=== PATIENT | female | born 1935 | race Caucasian/White ===

== ENCOUNTER 2016-11-27 12:51 | Emergency (ER) | payer OTHER, MEDICARE ==
[2016-11-27 13:07] VITALS: TEMP 98.4
--- NOTE | 2016-11-27 13:38 | EDPHY ---
H & P Stated Complaint: LOPEZ x 3 days Time Seen by Provider: 11/27/16 13:37 HPI/ROS: CHIEF COMPLAINT: Headache. HISTORY OF PRESENT ILLNESS: The patient is an 81-year-old female who presents with 3 days of frontal headache. She was not sick prior to the onset of the headache. She had a stroke two years ago and was diagnosed with chronic pain afterwards that manifested as headaches, however her headaches eventually subsided. Her only stroke symptom was headache and a syncopal episode. Today's headache is similar to those previous headaches. She admits associated nausea and has not been hydrating properly over the past 3 days because of this. The headache is worsened with movement and alleviated by lying down. She denies numbness or paresthesias in an arm or leg, head trauma, fever, vomiting, double vision, urinary complaints, or neck pain. She takes one baby aspirin per day but is otherwise not on any type of anticoagulants. REVIEW OF SYSTEMS: Aside from elements discussed in the HPI, a comprehensive 10-point review of systems was reviewed and is negative. PAST MEDICAL HISTORY: Hyponatremia, hemorrhagic stroke, pacemaker, afib/ flutter, neck arthritis. SOCIAL HISTORY: No alcohol use. VITAL SIGNS Reviewed by me. GENERAL: Well-developed, well-nourished, alert and conversant. Describes headache as across her forehead.. HEENT: Atraumatic. Eyes: PERRL, EOMI, no nystagmus. No forehead tenderness to percussion. No icterus. No injection. Mouth: moist mucous membranes. No erythema or lesions. Neck: No meningitis. Nontender to palpation. No adenopathy. Negative Kernig's. Negative Brudzinski's. No meningismus. LUNGS: Clear to auscultation bilaterally, no wheezes, rhonchi or rales. CARDIAC: Regular rate and rhythm, no rubs, murmurs or gallops. ABDOMEN: Soft, nontender, nondistended, bowel sounds normal. BACK: No CVA tenderness. EXTREMITIES: No trauma. No edema. Range of motion is normal throughout. NEURO: Alert and oriented, cranial nerves II through XII are intact. Motor strength 5 over 5 in all major muscle groups. Sensation intact to light touch. Normal gait. SKIN: Warm and dry, no rash. PSYCHIATRIC: Normal mentation, no agitation. Portions of this note were transcribed by a medical record librarian. I personally performed a history, physical exam, medical decision making, and confirmed accuracy of information the transcribed note. Source: Patient Exam Limitations: No limitations - Personal History Current Tetanus/Diphtheria Vaccine: Unsure Current Tetanus Diphtheria and Acellular Pertussis (TDAP): Unsure Tetanus Vaccine Date: < 5 years - Medical/Surgical History Hx Asthma: No Hx Chronic Respiratory Disease: Yes Hx Diabetes: No Hx Cardiac Disease: Yes Hx Renal Disease: No Hx Cirrhosis: No Hx Alcoholism: No Hx HIV/AIDS: No Hx Splenectomy or Spleen Trauma: No Other PMH: hyponatremia, stroke february 2015. pacemaker. brochelectisis. afib/ flutter - Social History Smoking Status: Former smoker Constitutional: Initial Vital Signs Temperature (C) 36.9 C 11/27/16 13:01 Heart Rate 85 11/27/16 13:01 Respiratory Rate 17 11/27/16 13:01 Blood Pressure 133/86 H 11/27/16 13:01 O2 Sat (%) 3 L 11/27/16 13:01 O2 Delivery Mode Room Air Allergies/Adverse Reactions: Sulfa (Sulfonamide Antibiotics) Allergy (Severe, Verified 07/21/16 09:59) Other-Enter Comments Home Medications: Medication Instructions Recorded Levothyroxine [Synthroid] 88 mcg PO DAILY06 11/06/15 Tears/Hypromellose [Natural 1 - 2 drops EACHEYE TID PRN 11/06/15 Balance] Aspirin EC [Aspirin EC 81 mg (*)] 81 mg PO DAILY 11/07/15 Ondansetron Odt [Zofran Odt 4 mg 2 - 4 mg PO Q6 PRN #8 tab 11/27/16 (RX)] Medical Decision Making - Diagnostics Imaging: Study: CT of the head. Results: No hemorrhage, no acute findings The study was read by the radiologist, Dr. Barajas . I viewed the images myself on the PACS system. ED Course/Re-evaluation: An IV was established and labs ordered. 1L IV saline administered for hydration , 2mg IV Zofran for nausea. Head CT ordered. Patient's head CT demonstrates no new findings. No acute hemorrhage. Patient was reassured by the CT findings. Patient reports her headache is improved with her fluids and her nausea was improved with the small doses Zofran. She will be discharged with oral Zofran to use as needed for ongoing nausea and encouraged to drink plenty of fluid. Differential Diagnosis: After history was obtained, and the physical exam performed, a differential for headache was considered including, but not limited to, subarachnoid hemorrhage, migraine headache, tension headache and infectious causes such as meningitis, sinusitis, encephalitis. - Data Points Laboratory Results: Laboratory Results 11/27/16 13:25 11/27/16 13:25 11/27/16 13:25 WBC 6.79 10^3/uL (3.80-9.50) RBC 4.82 10^6/uL (4.18-5.33) Hgb 14.6 g/dL (12.6-16.3) Hct 42.4 % (38.0-47.0) MCV 88.0 fL (81.5-99.8) MCH 30.3 pg (27.9-34.1) MCHC 34.4 g/dL (32.4-36.7) RDW 15.0 % (11.5-15.2) Plt Count 160 10^3/uL (150-400) MPV 11.6 fL (8.7-11.7) Neut % (Auto) 60.6 % (39.3-74.2) Lymph % (Auto) 25.8 % (15.0-45.0) [place] % (Auto) 8.7 % (4.5-13.0) Eos % (Auto) 4.1 % (0.6-7.6) Baso % (Auto) 0.7 % (0.3-1.7) Nucleat RBC Rel Count 0.0 % (0.0-0.2) Absolute Neuts (auto) 4.11 10^3/uL (1.70-6.50) Absolute Lymphs (auto) 1.75 10^3/uL (1.00-3.00) Absolute Monos (auto) 0.59 10^3/uL (0.30-0.80) Absolute Eos (auto) 0.28 10^3/uL (0.03-0.40) Absolute Basos (auto) 0.05 10^3/uL (0.02-0.10) Absolute Nucleated RBC 0.00 10^3/uL (0-0.01) Immature Gran % 0.1 % (0.0-1.1) Immature Gran # 0.01 10^3/uL (0.00-0.10) Sodium 139 mEq/L (134-144) Potassium 4.8 mEq/L (3.5-5.2) Chloride 103 mEq/L (97-110) Carbon Dioxide 25 mEq/l (22-31) Anion Gap 11 mEq/L (8-16) BUN 39 H mg/dL (7-23) Creatinine 1.2 H mg/dL (0.6-1.0) Estimated GFR 43 Glucose 90 mg/dL (70-100) Calcium 9.7 mg/dL (8.5-10.4) Troponin I < 0.012 ng/mL (0-0.034) Medications Given: Discontinued Medications Sodium Chloride (Ns) 1,000 mls @ 500 mls/hr IV CONT LUAN Stop: 05/26/17 13:59 Last Admin: 11/27/16 13:50 Dose: 1,000 mls Ondansetron HCl (Zofran) 2 mg IVP EDNOW ONE Stop: 11/27/16 13:55 Last Admin: 11/27/16 14:10 Dose: 2 mg Ondansetron HCl (Zofran Odt 4 Mg Prepack#2) 1 btl TAKEHOME EDNOW ONE Stop: 11/27/16 15:58 Last Admin: 11/27/16 16:15 Dose: 1 btl Departure - Departure Disposition: Home, Routine, Self-Care Clinical Impression: Headache Qualifiers: Headache type: unspecified Headache chronicity pattern: acute headache Intractability: not intractable Qualifier Code: (R51) Headache Condition: Good Instructions: Acute Headache (ED) Additional Instructions: Please try to drink plenty of fluid. Continue to use Tylenol as needed for headache pain. Okay to take Zofran, 1/2 a tablet, every 6-8 hours as needed for ongoing nausea. Please follow up with the primary care physician as needed. Consider follow-up with a neurologist if your headaches are becoming more frequent, persistent, or you have other concerns. Referrals: Brian Renee MD [Primary Care Provider] - As per Instructions Prescriptions: Ondansetron Odt [Zofran Odt 4 mg (RX)] 2 - 4 mg PO Q6 PRN #8 tab PRN Reason: Nausea Report Scribed for: Kina Martinez Report Scribed by: Junior Barroso Date of Report: 11/27/16 Time of Report: 13:37
[2016-11-27] MEDS ORDERED: ONDANSETRON 4 MG/2 ML VIAL IVP ONE (13:54)
[2016-11-27] MEDS ORDERED: NS 1,000 ML IV SCH (14:00)
[2016-11-27 14:06] LABS: ANION GAP 11 mEq/L (8-16); CALCIUM 9.7 mg/dL (8.5-10.4); CARBON DIOXIDE 25 mEq/l (22-31); CHLORIDE 103 mEq/L (97-110); CREATININE 1.2 mg/dL (0.6-1.0); GLOMERULAR FILTRATION RATE 43; GLUCOSE 90 mg/dL (70-100); POTASSIUM 4.8 mEq/L (3.5-5.2); SODIUM 139 mEq/L (134-144)
[2016-11-27 14:07] LABS: % IMMATURE GRANULYOCYTES 0.1 % (0.0-1.1); ABSOLUTE IMMATURE GRANULOCYTES 0.01 10^3/uL (0.00-0.10); ADD DIFF? NO; ADD MORPH? NO; ADD SCAN? NO; ATYPICAL LYMPHOCYTE FLAG 0 (0-99); FRAGMENT RBC FLAG 0 (0-99); HEMATOCRIT 42.4 % (38.0-47.0); HEMOGLOBIN 14.6 g/dL (12.6-16.3); LEFT SHIFT FLG 0 (0-99); LIPEMIA HEMOLYSIS FLAG 90 (0-99); MEAN CELL HEMOGLOBIN 30.3 pg (27.9-34.1); MEAN CELL HEMOGLOBIN CONCENTR. 34.4 g/dL (32.4-36.7); MEAN PLATELET VOLUME 11.6 fL (8.7-11.7); PLATELET CLUMPS FLAG 0 (0-99); PLATELET COUNT 160 10^3/uL (150-400); RED BLOOD CELL COUNT 4.82 10^6/uL (4.18-5.33)
[2016-11-27 14:21] LABS: TROPONIN I < 0.012 ng/mL (0-0.034)
--- NOTE | 2016-11-27 15:52 | CT ---
CT Scan of the Head (Without Contrast) Clinical Indications: 81-year-old female presenting to the ED complaining of a frontal headache for 3 days and a prior remote history of a hemorrhagic stroke. Technique: Axial CT images were acquired from the foramen magnum through the skull vertex, without i ntravenous contrast. Soft tissue, subdural, and bone windows were reviewed on the computer workstati on. Images were reformatted at 5.00 and 1.25 mm increments, and are reformatted in sagittal and trever nal planes. DFOV is 25.0 cm. Dose reduction techniques were utilized. Comparison Study: Unenhanced CT scan of the brain, dated April 29, 2016. Findings: There is a stable area of focal encephalomalacia involving the posterior medial right tempo ral lobe. There are no new mass lesions identified, and there is no evidence of an acute or subacute intracranial hemorrhage, or an acute infarct. The ventricles and subarachnoid spaces are prominent, with cortical sulcal widening consistent with age-related cerebral cortical atrophy. The bone windows reveal no sign of a fracture. The visualized paranasal sinuses and mastoid air cells are free of fl uid. Trace mucosal thickening of the maxillary and the ethmoid sinuses is seen. The craniocervical ju nction, sella turcica, pineal gland, and orbits are unremarkable. There is some faint mural atheroscl erotic calcification of the cavernous carotid arteries. If there is continuing clinical concern regar ding the patient's symptoms, MR imaging could be considered, if otherwise not contraindicated. 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 Results were called to Dr. Kina Martinez. A test result has been communicated to a licensed care provider and documented in [employer], 3:49:27 PM , 11/27/2016, [employer] Message ID [id number].
[2016-11-27] MEDS ORDERED: ONDANSETRON 4MG PREPACK#2 BTL TAKEHOME ONE (15:57)
[2016-11-27 16:15] VITALS: BP 133/78; PULSE 80; RESP 14; O2SAT 94
== END 2016-11-27 16:14 | disposition home or self-care (01) ==
DX: R51 Headache (principal); Z79.82 Long term (current) use of aspirin; Z95.0 Presence of cardiac pacemaker; Z87.891 Personal history of nicotine dependence
CPT/HCPCS: 96374

== ENCOUNTER → 2017-05-09 | Outpatient (CLI) | payer OTHER, MEDICARE | LOC: BHFA 14:00 | PROVIDERS: ATTEND Internal Medicine Cardiovascular Disease | DX: I48.91 Unspecified atrial fibrillation (principal) ==

== ENCOUNTER → 2017-05-11 | Outpatient (CLI) | payer OTHER, MEDICARE | LOC: FIMAGING 10:40 | PROVIDERS: ATTEND Internal Medicine | DX: G93.89 Other specified disorders of brain (principal); Z86.79 Personal history of other diseases of the circulatory system ==

== ENCOUNTER → 2017-05-22 | Outpatient (CLI) | payer OTHER, MEDICARE ==
--- NOTE | 2017-05-26 18:18 | CPEEG ---
[f rep st] ELECTROENCEPHALOGRAM FOUR-HOUR VIDEO ELECTROENCEPHALOGRAM. DATE OF STUDY: 05/22/2017 DATE OF INTERPRETATION: 05/26/2017 INTERPRETATION: This 4-hour video EEG recording shows a mild degree of focal slowing over the right posterior temporal head region. These findings would be consistent with a mild focal disturbance o f cerebral function in these regions. There were no potentially epileptogenic abnormalities present during the awake or sleep recordings. The patient did not have any clinical events during the vide o EEG monitoring session. REPORT: This 4-hour video EEG contains 8 to 9 Hz alpha activity in posterior head regions. There w as no abnormal epileptiform activation at rest, during photic stimulation or hyperventilation. Ther e was a mild degree of focal slowing over the right posterior temporal head region (maximal electrod es T4 and T6), composed of intermittent low-amplitude polymorphic theta activity. The patient becam e drowsy and fell asleep during the study. There was no abnormal activation during drowsiness, exte nded sleep, or times of arousal. The patient did not have any clinical events during the video EEG monitoring session. /[id number]/MODL
== END ==
LOC: FCPNEURO 11:09
PROVIDERS: ATTEND Psychiatry & Neurology Neurology
DX: R41.0 Disorientation, unspecified (principal)

== ENCOUNTER → 2017-05-23 | Outpatient (CLI) | payer OTHER, MEDICARE | LOC: BHFA 14:45 | PROVIDERS: ATTEND Internal Medicine | DX: R41.0 Disorientation, unspecified (principal) ==

== ENCOUNTER → 2017-07-05 | Outpatient (CLI) | payer OTHER, MEDICARE | LOC: FIMAGING 08:52 | PROVIDERS: ATTEND Internal Medicine | DX: Z12.31 Encounter for screening mammogram for malignant neoplasm of breast (principal); Z80.3 Family history of malignant neoplasm of breast | CPT/HCPCS: G0202 ==

== ENCOUNTER → 2017-10-16 | Outpatient (CLI) | payer OTHER, MEDICARE | LOC: FIMAGING 15:51 | PROVIDERS: ATTEND Otolaryngology | DX: R22.1 Localized swelling, mass and lump, neck (principal) ==

== ENCOUNTER → 2017-12-28 | Outpatient (CLI) | payer OTHER, MEDICARE | LOC: FIMAGING 11:57 | PROVIDERS: ATTEND Internal Medicine | DX: M16.0 Bilateral primary osteoarthritis of hip (principal) ==

== ENCOUNTER 2018-04-02 21:20 | Observation (INO) | payer OTHER, MEDICARE ==
[2018-04-02] MEDS ORDERED: NS 1,000 ML IV ONE (21:23)
--- NOTE | 2018-04-02 21:27 | EDPHY ---
H & P Time Seen by Provider: 04/02/18 21:24 HPI/ROS: HPI CHIEF COMPLAINT: Diarrhea, syncope HISTORY OF PRESENT ILLNESS: Patient is a 82-year-old female, she has a history of sick sinus syndrome with pacemaker, thyroid disease, she presents emergency room with 3 days of diarrhea watery nonbloody. She did see her primary care doctor today for diarrhea. She has a rather large dinner this evening she then went to the bathroom and had a diarrheal bowel movement. She became lightheaded and had a syncopal episode landing on the ground. The patient denies any injury. Denies chest pain or shortness of breath. Denies vomiting, denies abdominal pain. Does endorse diarrhea. Global weakness. She arrives by ambulance. She states she feels fine now. Past Medical History: Sick sinus syndrome with pacemaker, thyroid disease Past Surgical History: Left chest pacemaker Social History: Denies drugs alcohol tobacco. Family History: Noncontributory ROS REVIEW OF SYSTEMS: A comprehensive 10 point review of systems is otherwise negative aside from elements mentioned in the history of present illness. Exam Constitutional elderly, frail, triage nursing summary reviewed, vital signs reviewed, awake/alert. Eyes normal conjunctivae and sclera, EOMI, PERRLA. HENT normal inspection, atraumatic, dry mucus membranes, no epistaxis, neck supple/ no meningismus, no raccoon eyes. Respiratory clear to auscultation bilaterally, normal breath sounds, no respiratory distress, no wheezing. Cardiovascular rate normal, regular rhythm, no murmur, no edema, distal pulses normal. Gastrointestinal soft, non-tender, no rebound, no guarding, normal bowel sounds, no distension, no pulsatile mass. Genitourinary no CVA tenderness. Musculoskeletal no midline vertebral tenderness, full range of motion, no calf swelling, no tenderness of extremities, no meningismus, good pulses, neurovascularly intact. Skin pink, warm, & dry, no rash, skin atraumatic. Neurologic awake, alert and oriented x 3, AAOx3, moves all 4 extremities equally, motor intact, sensory intact, CN II-XII intact, normal cerebellar, normal vision, normal speech. Psychiatric normal mood/affect. Heme/Lymph/Immune no lymphadenopathy. Differential Diagnosis: Includes but is not limited to in a particular order dehydration electrolyte disturbance, vasovagal syncope, orthostatic syncope, cardiac arrhythmia Medical Decision Making: Plan for this patient IV establishment with blood draw , gentle IV fluids, EKG, troponin, check electrolytes, check magnesium, IV fluids for rehydration. Re-evaluation: EKG interpretation by me on record in [employer] system. Impression time of EKG 2132, sinus rhythm rate of 66, PVCs present. LVH present. Q-waves noted V1 V2 V3. When I compare this EKG to her old EKG is very similar morphology specifically EKG dated 02/15/2016 Source: Patient, EMS - Personal History Tetanus Vaccine Date: < 5 years - Medical/Surgical History Hx Asthma: No Hx Chronic Respiratory Disease: Yes Hx Diabetes: No Hx Cardiac Disease: Yes Hx Renal Disease: No Hx Cirrhosis: No Hx Alcoholism: No Hx HIV/AIDS: No Hx Splenectomy or Spleen Trauma: No Other PMH: hyponatremia, stroke february 2015. pacemaker. brochelectisis. afib/ flutter - Social History Smoking Status: Former smoker Constitutional: Initial Vital Signs Temperature (C) 36.3 C 04/02/18 21:22 Heart Rate 77 04/02/18 21:22 Respiratory Rate 16 04/02/18 21:22 Blood Pressure 157/73 H 04/02/18 21:22 O2 Sat (%) 93 04/02/18 21:22 O2 Delivery Mode Room Air Allergies/Adverse Reactions: Sulfa (Sulfonamide Antibiotics) Allergy (Severe, Verified 04/02/18 21:25) Other-Enter Comments Home Medications: Medication Instructions Recorded Tears/Hypromellose [Natural 1 - 2 drops EACHEYE TID PRN 11/06/15 Balance] Aspirin EC [Aspirin EC 81 mg (*)] 81 mg PO DAILY 11/07/15 Fludrocortisone Acetate [Florinef] 0.1 mg PO DAILY 04/02/18 Levothyroxine [Synthroid 50 mcg 50 mcg PO DAILY06 04/03/18 (*)] Medical Decision Making - Data Points Laboratory Results: Laboratory Results 04/02/18 21:30 04/02/18 21:30 Medications Given: Discontinued Medications Aspirin Buffered (Aspirin Ec) 81 mg PO DAILY [facility] Stop: 09/30/18 08:59 Last Admin: 04/03/18 08:53 Dose: 81 mg Enoxaparin Sodium (Lovenox) 30 mg SC DAILY [facility] Stop: 09/30/18 08:59 Last Admin: 04/03/18 08:57 Dose: Not Given Fludrocortisone Acetate (Florinef) 0.1 mg PO DAILY LUAN Stop: 09/30/18 08:59 Last Admin: 04/03/18 08:53 Dose: 0.1 mg Sodium Chloride (Ns) 1,000 mls @ 0 mls/hr IV EDNOW ONE; Wide Open PRN Reason: Protocol Stop: 04/02/18 21:24 Last Admin: 04/02/18 21:38 Dose: 1,000 mls Potassium Chloride/Sodium Chloride (Ns W/ 20 Kcl/L) 1,000 mls @ 100 mls/hr IV CONT LUAN Stop: 09/29/18 23:44 Last Admin: 04/03/18 01:19 Dose: 1,000 mls Levothyroxine Sodium (Synthroid) 88 mcg PO DAILY06 [facility] Stop: 09/30/18 07:59 Last Admin: 04/03/18 08:55 Dose: 88 mcg Levothyroxine Sodium (Synthroid) 50 mcg PO DAILY06 LUAN Stop: 09/30/18 10:14 Last Admin: 04/03/18 11:28 Dose: Not Given Departure - Departure Disposition: [facility] Clinical Impression: Dehydration Syncope Qualifiers: Syncope type: unspecified Qualified Code(s): R55 - Syncope and collapse Diarrhea Qualifiers: Diarrhea type: unspecified type Qualified Code(s): R19.7 - Diarrhea, unspecified Condition: Fair
--- NOTE | 2018-04-02 21:35 | CPEKG ---
Heart Rate: 65 RR Interval: 923 P-R Interval: 200 QRSD Interval: 80 QT Interval: 392 QTC Interval: 408 P [place]: 99 QRS [place]: -76 T Wave [place]: 3 EKG Severity - ABNORMAL ECG - EKG Impression: UNKNOWN RHYTHM, IRREGULAR RATE 54-82 EKG Impression: PROBABLE LEFT ATRIAL ABNORMALITY EKG Impression: LEFT ANTERIOR FASCICULAR BLOCK EKG Impression: PROBABLE LEFT VENTRICULAR HYPERTROPHY EKG Impression: ANTERIOR Q WAVES, POSSIBLY DUE TO LVH EKG Impression: BORDERLINE T ABNORMALITIES, INFERIOR LEADS Electronically Signed By: Dawood Chandler 02-Apr-2018 23:44:44
[2018-04-02 21:45] LABS: PLATELET COUNT 120 10^3/uL (150-400)
[2018-04-02 21:55] LABS: INR 1.09 (0.83-1.16); PROTIME(PATIENT) 14.3 SEC (12.0-15.0)
[2018-04-02 21:59] LABS: CREATINE KINASE 50 IU/L (0-156)
[2018-04-02] MEDS ORDERED: ONDANSETRON DISINTEGRATING 4 MG TAB PO PRN (23:34)
[2018-04-02] MEDS ORDERED: ACETAMINOPHEN 325 MG TAB PO PRN (23:34)
[2018-04-02] MEDS ORDERED: ONDANSETRON 4 MG/2 ML VIAL IVP PRN (23:34)
[2018-04-02] MEDS ORDERED: NS W/ 20 KCl/L 1,000 ML IV SCH (23:45)
--- NOTE | 2018-04-03 03:36 | PDGENHP ---
History and Physical - Chief Complaint Syncope - History of Present Illness 82 yo F w/ hx of hypothyroidism, sick sinus syndrome s/p PPM, and prior episodes of syncope presents with syncope. Patient states she has had loose stools for the last couple of days. On the day of admission she rushed to the bathroom for a bowel movement when she suffered a syncopal episode. She recalls feeling lightheaded prior to the event but denies other prodrome such as chest pain or shortness of breath. She regained consciousness quickly without complication and did not suffer significant injuries. The patient denies symptoms currently. History Information - Allergies/Home Medication List Allergies/Adverse Reactions: Sulfa (Sulfonamide Antibiotics) Allergy (Severe, Verified 04/02/18 21:25) Other-Enter Comments Home Medications: Levothyroxine [Synthroid] 88 mcg PO DAILY06 11/06/15 [Last Taken 11/05/15] Tears/Hypromellose [Natural Balance] 1 - 2 drops EACHEYE TID PRN 11/06/15 [Last Taken Unknown] Aspirin EC [Aspirin EC 81 mg (*)] 81 mg PO DAILY 11/07/15 [Last Taken 11/07/15] Fludrocortisone Acetate [Florinef 0.1 MG (RX)] 0.1 mg PO DAILY 04/02/18 [Last Taken Unknown] I have personally reviewed and updated: family history, medical history - Past Medical History Additional medical history: Hypothyroid. Sick sinus syndrome - Surgical History Reports: pacemaker/AICD - Family History Positive for: stroke - Social History Smoking Status: Former smoker Review of Systems Review of Systems: ROS: 10pt was reviewed & negative except for what was stated in HPI & below Physical Exam Physical Exam: Temp Pulse Resp BP Pulse Ox 36.5 C 61 16 151/75 H 91 L 04/03/18 00:46 04/03/18 00:46 04/03/18 00:46 04/03/18 00:46 04/03/18 00:46 Constitutional: no apparent distress, not in pain Eyes: PERRL, EOMI Ears, Nose, Mouth, Throat: moist mucous membranes, no oral mucosal ulcers Cardiovascular: regular rate and rhythym, systolic murmur, other (Pacemaker pocket intact) Respiratory: no respiratory distress, clear to auscultation Gastrointestinal: normoactive bowel sounds, soft, non-tender abdomen Skin: warm, normal color Musculoskeletal: full muscle strength, no muscle tenderness Neurologic: AAOx3, CN II-XII Intact Psychiatric: interacting appropriately, not anxious Lab Data & Imaging Review 04/02/18 21:30 04/02/18 21:30 WBC 6.85 10^3/uL (3.80-9.50) 04/02/18 21:30 RBC 4.16 10^6/uL (4.18-5.33) L 04/02/18 21:30 Hgb 12.5 g/dL (12.6-16.3) L 04/02/18 21:30 Hct 37.3 % (38.0-47.0) L 04/02/18 21:30 MCV 89.7 fL (81.5-99.8) 04/02/18 21:30 MCH 30.0 pg (27.9-34.1) 04/02/18 21:30 MCHC 33.5 g/dL (32.4-36.7) 04/02/18 21:30 RDW 14.3 % (11.5-15.2) 04/02/18 21:30 Plt Count 120 10^3/uL (150-400) L 04/02/18 21:30 MPV 10.1 fL (8.7-11.7) 04/02/18 21:30 Neut % (Auto) 75.4 % (39.3-74.2) H 04/02/18 21:30 Lymph % (Auto) 13.6 % (15.0-45.0) L 04/02/18 21:30 [place] % (Auto) 7.7 % (4.5-13.0) 04/02/18 21:30 Eos % (Auto) 2.9 % (0.6-7.6) 04/02/18 21:30 Baso % (Auto) 0.3 % (0.3-1.7) 04/02/18 21:30 Nucleat RBC Rel Count 0.0 % (0.0-0.2) 04/02/18 21:30 Absolute Neuts (auto) 5.16 10^3/uL (1.70-6.50) 04/02/18 21:30 Absolute Lymphs (auto) 0.93 10^3/uL (1.00-3.00) L 04/02/18 21:30 Absolute Monos (auto) 0.53 10^3/uL (0.30-0.80) 04/02/18 21:30 Absolute Eos (auto) 0.20 10^3/uL (0.03-0.40) 04/02/18 21:30 Absolute Basos (auto) 0.02 10^3/uL (0.02-0.10) 04/02/18 21:30 Absolute Nucleated RBC 0.00 10^3/uL (0-0.01) 04/02/18 21:30 Immature Gran % 0.1 % (0.0-1.1) 04/02/18 21:30 Immature Gran # 0.01 10^3/uL (0.00-0.10) 04/02/18 21:30 PT 14.3 SEC (12.0-15.0) 04/02/18 21:30 INR 1.09 (0.83-1.16) 04/02/18 21:30 APTT 33.8 SEC (23.0-38.0) 04/02/18 21:30 Sodium 139 mEq/L (135-145) 04/02/18 21:30 Potassium 3.7 mEq/L (3.5-5.2) 04/02/18 21:30 Chloride 105 mEq/L (97-110) 04/02/18 21:30 Carbon Dioxide 25 mEq/l (22-31) 04/02/18 21:30 Anion Gap 9 mEq/L (8-16) 04/02/18 21:30 BUN 33 mg/dL (7-23) H 04/02/18 21:30 Creatinine 1.3 mg/dL (0.6-1.0) H 04/02/18 21:30 Estimated GFR 39 04/02/18 21:30 Glucose 117 mg/dL (70-100) H 04/02/18 21:30 Calcium 8.4 mg/dL (8.5-10.4) L 04/02/18 21:30 Magnesium 2.0 mg/dL (1.6-2.3) 04/02/18 21:30 Total Bilirubin 0.6 mg/dL (0.1-1.4) 04/02/18 21:30 Conjugated Bilirubin 0.3 mg/dL (0.0-0.5) 04/02/18 21:30 Unconjugated Bilirubin 0.3 mg/dL (0.0-1.1) 04/02/18 21:30 AST 22 IU/L (14-46) 04/02/18 21:30 ALT 32 IU/L (9-52) 04/02/18 21:30 Alkaline Phosphatase 50 IU/L (38-126) 04/02/18 21:30 Creatine Kinase 50 IU/L (0-156) 04/02/18 21:30 CK-MB (CK-2) Fraction 1.67 ng/mL (0.00-3.19) 04/02/18 21:30 Troponin I < 0.012 ng/mL (0.000-0.034) 04/02/18 21:30 Total Protein 6.0 g/dL (6.3-8.2) L 04/02/18 21:30 Albumin 3.4 g/dL (3.5-5.0) L 04/02/18 21:30 Lipase 117 IU/L (23-300) 04/02/18 21:30 Urine Color YELLOW 04/02/18 22:30 Urine Appearance MODERATELY TURBID 04/02/18 22:30 Urine pH 6.0 (5.0-7.5) 04/02/18 22:30 Ur Specific [place] 1.012 (1.002-1.030) 04/02/18 22:30 Urine Protein NEGATIVE (NEGATIVE) 04/02/18 22:30 Urine Ketones NEGATIVE (NEGATIVE) 04/02/18 22:30 Urine Blood 1+ (NEGATIVE) H 04/02/18 22:30 Urine Nitrate NEGATIVE (NEGATIVE) 04/02/18 22:30 Urine Bilirubin NEGATIVE (NEGATIVE) 04/02/18 22:30 Urine Urobilinogen NEGATIVE EU (0.2-1.0) 04/02/18 22:30 Ur Leukocyte Esterase 3+ (NEGATIVE) H 04/02/18 22:30 Urine RBC 5-10 /hpf (0-3) H 04/02/18 22:30 Urine WBC 10-15 /hpf (0-3) H 04/02/18 22:30 Ur Epithelial Cells TRACE /lpf (NONE-1+) 04/02/18 22:30 Urine Bacteria 4+ /hpf (NONE SEEN) H 04/02/18 22:30 Urine Mucus TRACE /lpf (NONE-1+) 04/02/18 22:30 Urine Glucose NEGATIVE (NEGATIVE) 04/02/18 22:30 Imaging Review: Imaging Impressions Chest X-Ray 04/02/18 21:23 Impression: No acute thoracic abnormality. Stable cardiac device and bibasilar scarring. Visualized and Interpreted EKG results: Yes EKG Interpretation: Positive for: other (Sinus arrhythmia, LAFB, intermittent pacing) Assessment & Plan Assessment: 82 yo F w/ hx of hypothyroidism, sick sinus syndrome s/p PPM and prior episodes of syncope presents with syncope. Plan: 1. Syncope - Single syncopal episode in the setting of diarrhea. I suspect this is a combination of vasovagal syncope with contribution from orthostasis noting ongoing diarrhea. She does have history of sick sinus syndrome but she has a pacemaker in place and unlikely to be contributing. I do see Florentino on her medication list but patient does not recall what this is for. It is possible she has postural hypotension, which may be contributing. - Admit for observation - Monitor for telemetry, would interrogate pacemaker only if telemetry concerning - IVF, recheck orthostatic VS in the morning 2. Diarrhea - Overall appears mild with only a few episodes daily. She denies recent antibiotics. - Check GI PCR 3. Hx sick sinus syndrome - s/p PPM 4. Hypothyroidism - Continue LTX 5. CKD, Stage III - Appears to be near creatinine baseline - Monitor BMP - Avoid nephrotoxic agents, renally dose medications Diet - Regular Code - Full Ppx - LMWH Dispo - Admit under observation status
[2018-04-03 05:39] LABS: PLATELET COUNT 123 10^3/uL (150-400)
[2018-04-03] MEDS ORDERED: NON-FORMULARY NEW DRUG (Tears/Hypromellose [Natural Balance] 0 DROPS) EACHEYE PRN (07:49)
[2018-04-03] MEDS ORDERED: TEARS/DEXTRAN 70/HYPROMELLOSE 15 ML OPHT.BTL EACHEYE PRN (07:53)
[2018-04-03] MEDS ORDERED: LEVOTHYROXINE 88 MCG TAB PO SCH (08:00)
[2018-04-03 08:30] VITALS: BP 144/76
[2018-04-03] MEDS ORDERED: ASPIRIN EC 81 MG TAB PO SCH (09:00)
[2018-04-03] MEDS ORDERED: ENOXAPARIN 30 MG/0.3 ML SYR SC SCH (09:00)
[2018-04-03] MEDS ORDERED: FLUDROCORTISONE ACETATE 0.1 MG TAB PO SCH (09:00)
--- NOTE | 2018-04-03 09:43 | ASMTCASEMG ---
Living Arrangements What is your living Answers: With Spouse arrangement? Who do you live with? Type Of Residence What kind of residence do Answers: House you live in? Discharge Plan Comments Coordination Status Comments Notes: Pt is a 82 y/o female admitted for dehydration and diarrhea. Pt will most likely will d/c independent when medically stable. No therapies ordered at this time. CM available for changes. Plan: Independent Date Signed: 04/03/2018 09:43 AM Electronically Signed By:MG Cain
[2018-04-03] MEDS ORDERED: LEVOTHYROXINE 50 MCG TAB PO SCH (10:15)
--- NOTE | 2018-04-03 10:15 | HOSPPROG ---
Hospitalist Progress Note Assessment/Plan: Judy Montes is an 82 yo F w/ hx of hypothyroidism, sick sinus syndrome s/p PPM and prior episodes of syncope presents with syncope. *syncope -most likely secondary to vasovagal -she had an episode of diarrhea -orthostatics are stable -no further symptoms -she is on Florinef (reviewed w the patient and her blood pressure has been elevated, should f/u with their PCP in regards to this) *Diarrhea -none further *hx of SSS s/p pacer -reviewed tele, she has been in sinus -per patient and this was recently interrogated, sees Dr Owen *Hypothyroidism -home med resumed *CKD, stage III *Plan: dc today if eating and drinking and ambulating Subjective: Judy says she feels fine, has no complaints. Objective: Vital Signs Temp Pulse Resp BP Pulse Ox 36.6 C 64 24 H 144/76 H 93 04/03/18 08:00 04/03/18 08:00 04/03/18 08:00 04/03/18 08:00 04/03/18 08:00 Laboratory Results 04/03/18 04:50 04/03/18 04:50 PT 14.3 SEC (12.0-15.0) 04/02/18 21:30 INR 1.09 (0.83-1.16) 04/02/18 21:30 - Physical Exam Constitutional: no apparent distress, appears nourished, not in pain Eyes: PERRL Ears, Nose, Mouth, Throat: hearing normal Cardiovascular: regular rate and rhythym, no murmur, rub, or gallop Respiratory: no respiratory distress Skin: warm Neurologic: AAOx3 Psychiatric: interacting appropriately ICD10 Worksheet Patient Problems: Problems Problem Status Onset Dehydration Acute Diarrhea Acute Syncope Acute Bradycardia Acute Bronchiectasis Acute Headache Acute Intracranial hemorrhage Acute Pericardial effusion with cardiac tamponade Acute Pericardial tumor Acute Thrombocytopenia Acute
--- NOTE | 2018-04-03 11:20 | GDS ---
[f rep st] DISCHARGE SUMMARY DISCHARGE DIAGNOSES: 1. Syncopal event, likely vasovagal. 2. History of sick sinus syndrome status post pacer. 3. Diarrhea. 4. Hypothyroidism. 5. Chronic kidney disease, stage 3. HISTORY OF PRESENT ILLNESS: Briefly, the patient is an 82-year-old female who has a history of hypothyroidism, sick sinus syndrome status post pacemaker placement, who presented to the emergency room after having a syncopal event. The patient was going to the bathroom because she was having an episode of diarrhea and at that time passed out. She was admitted and monitored overnight. HOSPITAL COURSE: 1. Syncope. I suspect this is mainly secondary to vasovagal. Orthostatics were checked which are stable. She is on Florinef. Reviewed with the patient and her to get a blood pressure cuff and monitor this daily. In addition, she has recently gotten her pacemaker interrogated. 2. Diarrhea. None further. 3. History of sick sinus syndrome status post pacemaker. Reviewed the radiation monitor. She has been in a sinus rhythm. 4. Hypothyroidism on Synthroid. 5. Chronic kidney disease, stage 3, stable. DISCHARGE CONDITION: Stable. Blood pressure is 144/76, respiratory rate is 24 , pulse is 64, temperature 36.6 Celsius, O2 sats on room air are 93%. MEDICATIONS AT DISCHARGE: Please see the EMR. DISCHARGE INSTRUCTIONS: 1. Follow up Dr. Renee. 2. To check her blood pressure daily and keep a record of this to get to Dr. Renee. 3. If she develops any further syncope, chest pain, or shortness of breath, return to the ER. 4. Patient has some hematuria and pyuria without symptoms. Message left at Dr. Renee office for follow up. /[id number]/MODL MTDD
== END 2018-04-03 11:27 | disposition home or self-care (01) ==
LOC: EDUNIT# → F3E 04-03 00:38
PROVIDERS: ADMIT Student in an Organized Health Care Education/Training Program; ATTEND Internal Medicine
DX: R55 Syncope and collapse (principal); E86.0 Dehydration; R19.7 Diarrhea, unspecified; I49.5 Sick sinus syndrome; I44.4 Left anterior fascicular block; E03.9 Hypothyroidism, unspecified; N18.3 Chronic kidney disease, stage 3 (moderate); I48.91 Unspecified atrial fibrillation; Z86.73 Personal history of transient ischemic attack (TIA), and cerebral infarction without residual deficits; Z87.891 Personal history of nicotine dependence; Z95.0 Presence of cardiac pacemaker; Z88.2 Allergy status to sulfonamides
CPT/HCPCS: 71045; 93005; G0378; J1650

== ENCOUNTER 2018-08-16 10:23 | Emergency (ER) | payer OTHER, MEDICARE ==
[2018-08-16] MEDS ORDERED: NS 500 ML IV ONE ×2 (10:38→14:00)
--- NOTE | 2018-08-16 10:50 | EDPHY ---
H & P Time Seen by Provider: 08/16/18 10:37 HPI/ROS: HPI Fainted. 83-year-old female by private vehicle with her . The 2 of them were in the car. They are going to breakfast. Her was driving. When they arrived at the restaurant and the patient was about to get out of a car she told her that she was going to faint. She reports that she became lightheaded very suddenly. He reports that she then lost consciousness briefly. She did not fall to the ground. He was able to get her out of the passenger seat and lay her in the back seat of his car. She denies any associated sudden-onset headache, no palpitations, no chest pain, no shortness of breath. She denies any loss of sensation or weakness in her extremities. No changes in vision. She denies any current complaints. She does have a pacemaker that was placed 4 years ago for sick sinus syndrome. She takes a baby aspirin daily. No anticoagulation or other antiplatelet agents. ROS: Constitutional: No fever, no chills. As above. Eyes: No discharge. No changes in vision. ENT: No sore throat. No nasal congestion or rhinorrhea. Respiratory: No cough. No shortness of breath. Cardiac: No chest pain, no palpitations. Gastrointestinal: No abdominal pain, no vomiting, no diarrhea. Genitourinary: No hematuria. No dysuria or increased frequency with urination. Musculoskeletal: No back pain. No neck pain. No myalgias or arthralgias. Skin: No rashes. Neurological: No headache. No focal weakness or altered sensation. Past medical history: Hyponatremia, sick sinus syndrome, pacemaker, she takes a baby aspirin daily. Bronchiectasis. She and her tell me that the pacemaker insertion was complicated by a puncture to her ventricle. Her manufacturing team leader is Dr. Isaias Owen. Social history: Nonsmoker. Here with her . No alcohol. Physical Exam: General Appearance: Alert, no distress. This patient is responding to questions appropriately and in full sentences. This patient appears well- hydrated and well-nourished. Eyes: Pupils equal and round no pallor or injection. No lid edema, erythema or injection. ENT, Mouth: Mucous membranes are moist. The pharyngeal tissues are unremarkable. No edema or swelling. No asymmetry suggestive of abscess. No erythema or exudates. No tongue lacerations or abrasions. Respiratory: There are no retractions, lungs are clear to auscultation with good air movement bilaterally. Cardiovascular: Regular rate and rhythm. No murmur appreciated. Gastrointestinal: Abdomen is soft and nontender, no masses, bowel sounds normal. No focal tenderness at McBurney's point. No Wallis sign. Neurological: Motor sensory function is grossly intact. Cranial nerves are normal. Cerebellar function is normal. Skin: Warm and dry, no rashes. Musculoskeletal: Neck is supple and nontender. Extremities are symmetrical. All joints range without pain or impingement. Psychiatric: No agitation. No depression. Database: EKG: EKG time is 10:38 a.m.: EKG shows probable third-degree AV block with ventricular paced complexes, ventricular rate average of 68. Interpreted by me. Imaging: Procedures: Emergency department course: Triage vital signs reviewed and are within normal limits. IV was placed. She was started on IV normal saline with 500 cc to be given over the next hour. She was placed on a clinical research monitor. EKG obtained and reviewed by myself. Patient is currently asymptomatic. Her pacemaker is a [employer] device. They will be contacted for interrogation. 11:23 a.m., patient re-evaluated. Resting comfortably at this time. No change in neurologic status. Vital signs reviewed. Results of emergency department workup discussed with the patient and her family. I discussed plan for admission to the hospitalist service. They endorse. All of their questions were answered. Hospitalist paged. 11:30 a.m., spoke with on-call hospitalist. Case discussed in detail. Patient admitted to the hospitalist service in stable condition. Interrogation of [employer] pacemaker pending. Patient admitted to the hospitalist service, telemetry observation in stable condition. Differential Diagnosis: The differential diagnosis on this patient includes but is not limited to pacemaker malfunction, dehydration, anemia. Subarachnoid hemorrhage, acute TX, pulmonary embolism, CVA unlikely. This represents a partial list of diagnoses considered. These considerations are based on history, physical exam, past history, reassessment and diagnostic testing. Smoking Status: Former smoker Constitutional: Initial Vital Signs Temperature (C) 36.5 C 08/16/18 10:26 Heart Rate 62 08/16/18 10:26 Respiratory Rate 16 08/16/18 10:26 Blood Pressure 112/67 08/16/18 10:26 O2 Sat (%) 92 08/16/18 10:26 O2 Delivery Mode Room Air O2 (L/minute) 2 Allergies/Adverse Reactions: Sulfa (Sulfonamide Antibiotics) Allergy (Severe, Verified 08/16/18 10:28) Other-Enter Comments Home Medications: Medication Instructions Recorded Tears/Hypromellose [Natural 1 - 2 drops EACHEYE TID PRN 11/06/15 Balance] Aspirin EC [Aspirin EC 81 mg (*)] 81 mg PO DAILY 11/07/15 Fludrocortisone Acetate [Florinef] 0.1 mg PO DAILY 04/02/18 Levothyroxine [Synthroid 50 mcg 50 mcg PO DAILY06 04/03/18 (*)] Medical Decision Making - Data Points Laboratory Results: Laboratory Results 08/16/18 10:44 08/16/18 10:44 Medications Given: Discontinued Medications Sodium Chloride (Ns) 500 mls @ 1,000 mls/hr IV EDNOW ONE PRN Reason: Protocol Stop: 08/16/18 11:07 Last Admin: 08/16/18 10:48 Dose: 500 mls Sodium Chloride (Ns) 500 mls @ 0 mls/hr IV ONCE ONE PRN Reason: Wide Open Stop: 08/16/18 14:01 Last Admin: 08/16/18 14:03 Dose: 500 mls Point of Care Test Results: Chemistry 08/16/18 08/16/18 14:42 10:44 POC Troponin I 0.01 ng/mL ng/mL 0.00 ng/mL ng/mL (0.00-0.08) (0.00-0.08) Departure - Departure Disposition: [facility] Inpatient Acute Clinical Impression: Syncope Condition: Fair Instructions: Syncope (ED) Additional Instructions: Drink plenty of fluids. Referrals: Brian Renee MD [Primary Care Provider] - As per Instructions
[2018-08-16 10:56] LABS: PLATELET COUNT 131 10^3/uL (150-400)
[2018-08-16] MEDS ORDERED: ONDANSETRON DISINTEGRATING 4 MG TAB PO PRN (11:37)
[2018-08-16] MEDS ORDERED: ACETAMINOPHEN 325 MG TAB PO PRN (11:37)
[2018-08-16] MEDS ORDERED: ONDANSETRON 4 MG/2 ML VIAL IVP PRN (11:37)
--- NOTE | 2018-08-16 13:47 | CPEKG ---
Test Reason : OPEN Blood Pressure : / mmHG Vent. Rate : 068 BPM Atrial Rate : 060 BPM P-R Int : 186 ms QRS Dur : 137 ms QT Int : 472 ms P-R-T Axes : 096 -87 076 degrees QTc Int : 503 ms Sinus rhythm Atrial premature complexes IVCD, consider atypical RBBB Inferior infarct, acute Anterolateral infarct, recent Confirmed by Cassi Valentine ([id number]) on 08/16/2018 1:47:43 PM Referred By: Confirmed By:Cassi Valentine
--- NOTE | 2018-08-16 14:43 | GHP ---
DATE OF ADMISSION: 08/16/2018 CHIEF COMPLAINT: Syncope. HISTORY OF PRESENT ILLNESS: An 83-year-old female with history of sick sinus syndrome with pacemaker , hypothyroidism, CKD 3, prior syncope, was brought in by family after syncopal episode. She was in her usual state of health this morning, went out to breakfast with her . While in the car, shravan resendiz felt as though she was going to faint. He thinks she lost consciousness for a few seconds. She de nied prodromal chest pain, shortness of breath, or palpitations. No focal weakness, or slurred speec h. says she had a busy day yesterday, went shopping, cooked, and felt very tired last night. De nies any infectious symptoms including cough, dysuria, diarrhea. Has been eating and drinking normal ly. In the ER, says she feels well. Her [employer] pacemaker was interrogated in the emergency room without any abnormal events. REVIEW OF SYSTEMS: I completed a 10-point review of systems, negative except as noted in HPI. PAST MEDICAL HISTORY: 1. Sick sinus syndrome with pacemaker. 2. Prior syncope. 3. Bronchiectasis. 4. CVA. 5. History of pericardial tamponade and revision of pacer lead in 2013. PAST SURGICAL HISTORY: 1. Cholecystectomy. 2. Hysterectomy. SOCIAL HISTORY: Lives in [place]. No alcohol, tobacco or illicits. FAMILY HISTORY: Noncontributory. HOME MEDICATIONS: 1. Eyedrops. 2. Synthroid 50 mcg daily. 3. Florinef 0.1 mg daily. 4. Aspirin 81. ALLERGIES: Sulfa. PHYSICAL EXAMINATION: VITAL SIGNS: Temperature is afebrile. Blood pressure is 168/80, heart rate i s in the 70s, respirations 22, 98% on room air. GENERAL: She is thin, elderly, no acute distress. HEENT: PERRLA. Mildly dry mucous membranes. CV: Regular rate and rhythm. No lower extremity jerry a. LUNGS: Clear. No crackles or wheezing. ABDOMEN: Mild epigastric tenderness. : No Velazquez. No suprapubic tenderness. MUSCULOSKELETAL: 5/5 upper and lower extremity strength. NEURO: 2 throu gh 12 intact. PSYCH: Alert and oriented x3. LABS: WBC 7, hemoglobin 13, hematocrit 40, platelets 131. UA is negative. Sodium 138, potassium 4. 8, chloride 104, carbon dioxide 24, BUN 38, creatinine is 1.3. Baseline is 1 to 1.2. Calcium is 9.3 . Troponin 0.00. EKG personally reviewed by me showing a VV paced. No ST elevation. ASSESSMENT AND PLAN: 1. Syncope: Differential: ACS, PE, dehydration. Initial troponin, and EKG negative. Stable on ro om air, and not tachycardiac. Low suspicion for pulmonary embolism. Her pacemaker was interrogated without acute events. Repeat troponin here. Patient really would like to go home. I think this is reasonable given negative findings thus far. 2. Hypothyroidism: Synthroid. 3. Sick sinus syndrome: Pacemaker in place. 4. Diet: Will be regular. 5. Disposition: Patient has been admitted to observation. Depending on next troponin, may discharg e later this afternoon. /[id number]/MODL
--- NOTE | 2018-08-16 16:14 | GDS ---
DISCHARGE DIAGNOSES: 1. Syncope. 2. History of sick sinus syndrome with pacemaker. 3. Prior stroke. 4. Bronchiectasis. HPI: Please see full H and P dictated today. Briefly, the patient was admitted for a brief syncopal episode while getting out of the car. She den ied any prodromal symptoms. EKG and 2 troponins were negative here. Her pacemaker was interrogated without any acute events. Suspect a component of dehydration with mild bump in creatinine. After IV fluids, the patient is feeling much improved and would like to go home. I did offer telemetry to en sure no arrhythmia or issues overnight. She declined. DISPOSITION: Patient is stable for discharge home. NEW MEDICATIONS: None. DISCHARGE INSTRUCTIONS: Drink plenty of fluids. FOLLOWUP: With your primary cardiology. Time spent on discharge greater than 30 minutes bedside with the patient, discussing case with Dr. Boles, as well as Dr. Koroma with Cardiology. /[id number]/MODL
[2018-08-16 16:29] VITALS: BP 179/89
[2018-08-17] MEDS ORDERED: ENOXAPARIN 40 MG/0.4 ML SYR SC SCH (09:00)
== END 2018-08-16 16:29 | disposition still patient (30) ==
LOC: UNDOADMOB 11:26
DX: R55 Syncope and collapse (principal); E86.0 Dehydration; J47.9 Bronchiectasis, uncomplicated; Z95.0 Presence of cardiac pacemaker; I49.5 Sick sinus syndrome; E03.9 Hypothyroidism, unspecified; Z86.73 Personal history of transient ischemic attack (TIA), and cerebral infarction without residual deficits
CPT/HCPCS: 84484-PO; J1650

== ENCOUNTER 2018-12-24 09:59 | Emergency (ER) | payer OTHER, MEDICARE ==
[2018-12-24 11:11] LABS: PLATELET COUNT 131 10^3/uL (150-400)
[2018-12-24] MEDS ORDERED: NS 1,000 ML IV ONE (11:56)
--- NOTE | 2018-12-24 11:56 | EDPHY ---
H & P Time Seen by Provider: 12/24/18 11:36 HPI/ROS: Chief complaint. Syncope HPI. 83-year-old female presents emergency department after syncopal episode earlier today. She was sitting at the kitchen table. She had no sense of lightheadedness or chest discomfort. She awoke on the floor. Her was out of the house and so it is unknown the exact length of loss of consciousness but maybe 25 min. She has a large bump to the left forehead. Yesterday she had nausea with decreased oral intake, headache and felt slightly faint. She had 2 1 sec twinges of left chest pain yesterday. Denies shortness of breath currently. She has chronic cough. She has had previous syncope ROS 10 systems were reviewed and negative with the exception of the elements mentioned in the history of present illness Past Medical/Surgical History: Bronchiectasis, hyponatremia, intracranial hemorrhage, pacemaker, atrial fib/ flutter Social History: , nonsmoker, no alcohol Smoking Status: Former smoker Physical Exam: General Appearance: Alert pleasant well-developed female mild distress. Vital signs are stable Eyes: Pupils equal and round no pallor or injection. ENT, no hemotympanum or Madsen sign. No oral pharyngeal or dental trauma. Large hematoma left forehead. Respiratory: There are no retractions, lungs are clear to auscultation. Cardiovascular: Regular rate and rhythm. Gastrointestinal: Abdomen is soft and nontender, no masses, bowel sounds normal. Neurological: Awake and alert, sensory and motor exams grossly normal. Skin: Warm and dry, no rashes. Musculoskeletal: Neck is supple nontender. Extremities symmetrical, full range of motion. Psychiatric: Patient is oriented X 3, there is no agitation. Constitutional: Initial Vital Signs Temperature (C) 36.3 C 12/24/18 10:07 Heart Rate 63 12/24/18 10:07 Respiratory Rate 18 12/24/18 10:07 Blood Pressure 137/73 H 12/24/18 10:07 O2 Sat (%) 92 12/24/18 10:07 O2 Delivery Mode Room Air Allergies/Adverse Reactions: Sulfa (Sulfonamide Antibiotics) Allergy (Severe, Verified 12/24/18 10:06) Other-Enter Comments Home Medications: Medication Instructions Recorded Tears/Hypromellose [Natural 1 - 2 drops EACHEYE TID PRN 11/06/15 Balance] Aspirin EC [Aspirin EC 81 mg (*)] 81 mg PO DAILY 11/07/15 Fludrocortisone Acetate [Florinef] 0.1 mg PO DAILY 04/02/18 Levothyroxine [Synthroid 50 mcg 50 mcg PO DAILY06 04/03/18 (*)] Medical Decision Making - Diagnostics EKG Interpretation: EKG interpreted by me shows normal sinus rhythm normal interval. Left axis deviation. Interventricular conduction delay. No significant ST elevation or depression. No arrhythmia. The rate is 60 Not significantly changed from previous EKG July 2018 Imaging Results: Imaging Impressions Head CT 12/24/18 11:56 Impression: 1. Mild atrophy. 2. No acute hemorrhage, hydrocephalus, or mass effect. 3. Cerebrovascular atherosclerosis. 4. No definite acute infarct. 5. Old infarct right posterior temporal lobe. 6. No epidural or subdural hematoma. Findings and recommendations discussed with Emergency Department physician, Brian Mcknight at 1210 hour, 12/24/2018. Final report concurs with initial preliminary interpretation. Noncontrast head CT shows no evidence for intracranial bleeding or skull fracture. Reviewed by me and discussed with Dr. Baker Procedures: IV normal saline. Monitor Pacer interrogation is normal ED Course/Re-evaluation: Serial evaluations the patient is stable. She and her would like to go home if the workup is normal. We are awaiting pacer interrogation results. She is ambulatory in the emergency department without symptoms Patient is ambulatory in the department.. Patient, her , and I discussed imaging and laboratory evaluation. We discussed admission. They would prefer to be treated as outpatient. There are encouraged to return at any point for worsening symptoms. They expressed understanding and agreement Differential Diagnosis: Syncope of unclear etiology. Head trauma but no evidence for intracranial bleeding or skull fracture. She has a pacer but no evidence of tachy dysrhythmia. Laboratory evaluation is nonacute. The patient did have decreased oral intake yesterday and does feel better after 1 L fluid. This may have been orthostatic hypotension or dehydration - Data Points Laboratory Results: Laboratory Results 12/24/18 10:50 12/24/18 10:50 12/24/18 12/24/18 12/24/18 11:00 10:50 10:50 WBC 6.67 10^3/uL 10^3/uL (3.80-9.50) RBC 4.67 10^6/uL 10^6/uL (4.18-5.33) Hgb 14.0 g/dL g/dL (12.6-16.3) Hct 42.2 % % (38.0-47.0) MCV 90.4 fL fL (81.5-99.8) MCH 30.0 pg pg (27.9-34.1) MCHC 33.2 g/dL g/dL (32.4-36.7) RDW 14.9 % % (11.5-15.2) Plt Count 131 10^3/uL L 10^3/uL (150-400) MPV 11.2 fL fL (8.7-11.7) Neut % (Auto) 78.1 % H % (39.3-74.2) Lymph % (Auto) 13.5 % L % (15.0-45.0) Anson % (Auto) 6.6 % % (4.5-13.0) Eos % (Auto) 0.9 % % (0.6-7.6) Baso % (Auto) 0.6 % % (0.3-1.7) Nucleat RBC Rel Count 0.0 % % (0.0-0.2) Absolute Neuts (auto) 5.21 10^3/uL 10^3/uL (1.70-6.50) Absolute Lymphs (auto) 0.90 10^3/uL L 10^3/uL (1.00-3.00) Absolute Monos (auto) 0.44 10^3/uL 10^3/uL (0.30-0.80) Absolute Eos (auto) 0.06 10^3/uL 10^3/uL (0.03-0.40) Absolute Basos (auto) 0.04 10^3/uL 10^3/uL (0.02-0.10) Absolute Nucleated RBC 0.00 10^3/uL 10^3/uL (0-0.01) Immature Gran % 0.3 % % (0.0-1.1) Immature Gran # 0.02 10^3/uL 10^3/uL (0.00-0.10) Turbidity Cancelled Sodium Cancelled Potassium Cancelled Chloride Cancelled Carbon Dioxide Cancelled Anion Gap Cancelled BUN Cancelled Creatinine Cancelled Estimated GFR Cancelled Glucose Cancelled Calcium Cancelled Total Bilirubin AST ALT Alkaline Phosphatase POC Troponin I 0.00 ng/mL ng/mL (0.00-0.08) Troponin I NT-Pro-B Natriuret Pep 1790 pg/mL H pg/mL (0-450) Total Protein Albumin Specimen Hemolysis Cancelled 12/24/18 10:50 WBC RBC Hgb Hct MCV MCH MCHC RDW Plt Count MPV Neut % (Auto) Lymph % (Auto) Anson % (Auto) Eos % (Auto) Baso % (Auto) Nucleat RBC Rel Count Absolute Neuts (auto) Absolute Lymphs (auto) Absolute Monos (auto) Absolute Eos (auto) Absolute Basos (auto) Absolute Nucleated RBC Immature Gran % Immature Gran # Turbidity Sodium 138 mEq/L mEq/L (135-145) Potassium 4.5 mEq/L mEq/L (3.5-5.2) Chloride 105 mEq/L mEq/L (97-110) Carbon Dioxide 27 mEq/l mEq/l (22-31) Anion Gap 6 mEq/L mEq/L (6-14) BUN 38 mg/dL H mg/dL (7-23) Creatinine 1.3 mg/dL H mg/dL (0.6-1.0) Estimated GFR 39 Glucose 95 mg/dL mg/dL (70-100) Calcium 9.4 mg/dL mg/dL (8.5-10.4) Total Bilirubin 0.5 mg/dL mg/dL (0.1-1.4) AST 24 IU/L IU/L (14-46) ALT 30 IU/L IU/L (9-52) Alkaline Phosphatase 68 IU/L IU/L (38-126) POC Troponin I Troponin I < 0.012 ng/mL ng/mL (0.000-0.034) NT-Pro-B Natriuret Pep Total Protein 6.9 g/dL g/dL (6.3-8.2) Albumin 4.1 g/dL g/dL (3.5-5.0) Specimen Hemolysis Medications Given: Discontinued Medications Aspirin (Aspirin) 81 mg PO EDNOW ONE Stop: 12/24/18 13:22 Last Admin: 12/24/18 13:29 Dose: 81 mg Sodium Chloride (Ns) 1,000 mls @ 0 mls/hr IV ONCE ONE; Wide Open PRN Reason: Protocol Stop: 12/24/18 11:57 Last Admin: 12/24/18 12:19 Dose: 1,000 mls Point of Care Test Results: Chemistry 12/24/18 11:00 POC Troponin I 0.00 ng/mL ng/mL (0.00-0.08) Departure - Departure Disposition: Home, Routine, Self-Care Clinical Impression: Syncope Qualifiers: Syncope type: unspecified Qualified Code(s): R55 - Syncope and collapse Condition: Good Instructions: Syncope (ED) Additional Instructions: Drink plenty of fluids and stay hydrated. Return for another passing out episode. Ice to your head next 24 hr. Re-evaluation in the next 1-2 days for any continuing symptoms. Otherwise keep her appointment with Dr. Renee next week. Referrals: Brian Renee MD [Primary Care Provider] - As per Instructions
[2018-12-24] MEDS ORDERED: ASPIRIN 81 MG CHEWABLE TAB PO ONE (13:21)
--- NOTE | 2018-12-24 14:25 | CPEKG ---
Test Reason : OPEN Blood Pressure : / mmHG Vent. Rate : 060 BPM Atrial Rate : 060 BPM P-R Int : 193 ms QRS Dur : 143 ms QT Int : 476 ms P-R-T Axes : 074 270 079 degrees QTc Int : 476 ms Sinus rhythm Atrial premature complex Left atrial enlargement IVCD, consider atypical RBBB Anterolateral infarct, old Confirmed by Brian Mcknight ([id number]) on 12/24/2018 2:25:09 PM Referred By: PHYSICIAN ED Confirmed By:Brian Mcknight
[2018-12-24 15:26] VITALS: BP 185/92
== END 2018-12-24 15:24 | disposition home or self-care (01) ==
DX: R55 Syncope and collapse (principal)
CPT/HCPCS: 84484-ER

== ENCOUNTER 2019-01-19 16:45 | Emergency (ER) | payer OTHER, MEDICARE ==
[2019-01-19 17:12] LABS: PLATELET COUNT 141 10^3/uL (150-400)
--- NOTE | 2019-01-19 17:13 | EDPHY ---
General Time Seen by Provider: 01/19/19 16:59 Narrative: CLINICAL IMPRESSION: Dizziness, Fatigued, Mild Dehydration ASSESSMENT/PLAN: 83-year-old female presents to the emergency department with 1 day of generalized fatigue, nausea, mild dizziness, and complaining of dehydration. 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 He reports that she has had episodes like this in the past that typically resolve with IV fluids. She has no coinciding chest pain, shortness of breath, headache, vertigo, acute vision or hearing changes, neck pain or abdominal pain. EKG with new inverted T -waves lead 3, V4 through V6, reviewed with Dr. Tejada. No acute ST or T-wave changes. Compared to prior EKG of November of this year this is different. Troponin negative. Mild renal insufficiency with a creatinine of 1.1 which patient's reports is her baseline. Patient felt markedly better after 1 L IV normal saline, was able to ambulate to the restroom without difficulty and reported feeling improved. Admission was discussed and offered. Patient and her have declined this time. There prefer to go home and follow up as an outpatient. Warning signs return to emergency department sooner outlined in discharge papers. DIFFERENTIAL DX: Abdominal pain includes but not limited to acute appendicitis, diverticulitis, cholecystitis, pancreatitis, SBO, gastroenteritis, constipation ED PROCEDURES: See lab and/or imaging results below ED COURSE: 5:00 p.m.: Patient seen assessed by myself. Well appearing, nontoxic, nonseptic. Plan for IV, EKG, labs, IV hydration 5:50 p.m.: Labs reviewed. Mild dehydration based on BUN to creatinine ratio, creatinine 1.1. No leukocytosis or anemia. EKG with new flipped T's V4 through V5 and lead 3. Reviewed with Dr. Tejada. Patient has no complaints of chest pain or shortness of breath. Pacer leads appear to be different from prior EKG of November 2018. 6:02 p.m.: Patient reassessed, feeling much better, able to ambulate to the restroom without headache or lightheadedness. 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 They would like to follow up as an outpatient with Cardiology and Dr. Acosta. Troponin pending. Provided this is negative will plan to discharge patient home. CHIEF COMPLAINT: Feeling dehydrated, nauseous HPI: Is a very pleasant 83-year-old female presents to the ED with her for concerns of mild dehydration. Her reports since his sustained a stroke 5 years ago she will have intermittent episodes of lightheadedness and nausea that causes her to get mildly dehydrated. In the past she has had syncopal episodes related to this. They have never been able to find a cause for this. She had her pacemaker interrogated in November of this year after having syncopal episode. She is followed by Dr. Khan. She has no complaints of chest pain or shortness of breath. No abdominal pain, vomiting or diarrhea and simply states she feels queasy. She has been able to drink water today and has urinated several times. No fever or chills. No recent travel, recent antibiotics or exposures. PAST MEDICAL HISTORY: History of hyponatremia, bronchiectasis, CVA in 2015, AFib/flutter See nurse/triage notes for additional history if applicable Pertinent Past Surgical History: None reported Family History: Noncontributory Social History: , here with her REVIEW OF SYSTEMS: All other systems negative Constitutional: No fever, no chills, positive for appetite change. Eyes: No discharge, vision change ENT: No sore throat, congestion, ear pain. Cardiovascular: No chest pain, no palpitations. Respiratory: No cough, no shortness of breath. Gastrointestinal: No abdominal pain, positive for nausea, no vomiting, diarrhea. Genitourinary: No hematuria, dysuria, flank pain, pelvic pain Musculoskeletal: No back pain, joint swelling, joint pain, myalgias. Skin: No rashes, color change. Neurological: No headache, dizziness, weakness., syncope PHYSICAL EXAM: General Appearance: Alert, oriented, appropriate, cooperative, NAD, well hydrated, non-toxic appearing, hypertensive, no hypoxia. HEENT: TMs are clear bilaterally no perforation or FB, no injection, no evidence of serous or mucopurulent otitis. Oropharynx clear, moist mucous membranes, is no erythema or exudates, no tonsillar hypertrophy or asymmetry. Dentition without abnormality. Eyes: PERRLA, no acute vision change, nystagmus, swelling, discharge, pain or photosensitivity. Conjunctiva pink, no pallor or injection Neck: Supple, nontender, no lymphadenopathy, no midline pain, FROM, no meningismus. Respiratory: There are no retractions, lungs are clear to auscultation. Cardiac: Regular rate and rhythm, no murmurs or gallops. Gastrointestinal: Abdomen is soft, nontender, bowel sounds normal, no masses/ hernia, no rigidity, guarding or focal peritoneal findings. Neurological: Alert and oriented x 3, CN 2-12 grossly intact, no limb ataxia, DTR's intact, normal sensation and strength Skin: Warm, dry, no rashes, no nodules on palpation. Musculoskeletal: Extremities are symmetrical, full range of motion, no tenderness, deformity, swelling, or erythema. No pitting edema to lower extremities Psychiatric: Patient is oriented X 3, there is no agitation. MEDICAL DECISION MAKING: Patient was seen independently. Secondary supervising physician at time of evaluation was Dr. Tejada. Diagnosis: Dizziness, fatigue, mild dehydration . New, requires workup Summary: See Assessment and Plan for summary of ED visit Clinical lab tests: ordered / reviewed. Independent visualization of images, tracing, or specimens: Not obtained. Decision to obtain medical records or history from someone other than the patient: Patient's Review / Summarize previous medical records: Reviewed past ED chart notes and EKGs Discussed patient with another provider: Dr. Tejada Patient Progress: Improved, stable for discharge. - History Smoking Status: Former smoker - Objective Vital Signs: Initial Vital Signs Temperature (C) 36.3 C 01/19/19 16:52 Heart Rate 73 01/19/19 16:52 Respiratory Rate 16 01/19/19 16:52 Blood Pressure 170/94 H 01/19/19 16:52 O2 Sat (%) 91 L 01/19/19 16:52 O2 Delivery Mode Room Air Allergies/Adverse Reactions: Sulfa (Sulfonamide Antibiotics) Allergy (Severe, Verified 12/24/18 10:06) Other-Enter Comments Home Medications: Medication Instructions Recorded Tears/Hypromellose [Natural 1 - 2 drops EACHEYE TID PRN 11/06/15 Balance] Aspirin EC [Aspirin EC 81 mg (*)] 81 mg PO DAILY 11/07/15 Fludrocortisone Acetate [Florinef] 0.1 mg PO DAILY 04/02/18 Levothyroxine [Synthroid 50 mcg 50 mcg PO DAILY06 04/03/18 (*)] Laboratory Results: Laboratory Results 01/19/19 17:00 01/19/19 17:00 01/19/19 01/19/19 01/19/19 18:26 17:00 17:00 WBC 5.96 10^3/uL 10^3/uL (3.80-9.50) RBC 4.46 10^6/uL 10^6/uL (4.18-5.33) Hgb 13.4 g/dL g/dL (12.6-16.3) Hct 39.7 % % (38.0-47.0) MCV 89.0 fL fL (81.5-99.8) MCH 30.0 pg pg (27.9-34.1) MCHC 33.8 g/dL g/dL (32.4-36.7) RDW 15.1 % % (11.5-15.2) Plt Count 141 10^3/uL L 10^3/uL (150-400) MPV 11.3 fL fL (8.7-11.7) Neut % (Auto) 56.3 % % (39.3-74.2) Lymph % (Auto) 31.4 % % (15.0-45.0) [place] % (Auto) 9.1 % % (4.5-13.0) Eos % (Auto) 2.3 % % (0.6-7.6) Baso % (Auto) 0.7 % % (0.3-1.7) Nucleat RBC Rel Count 0.0 % % (0.0-0.2) Absolute Neuts (auto) 3.36 10^3/uL 10^3/uL (1.70-6.50) Absolute Lymphs (auto) 1.87 10^3/uL 10^3/uL (1.00-3.00) Absolute Monos (auto) 0.54 10^3/uL 10^3/uL (0.30-0.80) Absolute Eos (auto) 0.14 10^3/uL 10^3/uL (0.03-0.40) Absolute Basos (auto) 0.04 10^3/uL 10^3/uL (0.02-0.10) Absolute Nucleated RBC 0.00 10^3/uL 10^3/uL (0-0.01) Immature Gran % 0.2 % % (0.0-1.1) Immature Gran # 0.01 10^3/uL 10^3/uL (0.00-0.10) Sodium 137 mEq/L mEq/L (135-145) Potassium 4.2 mEq/L mEq/L (3.5-5.2) Chloride 105 mEq/L mEq/L (97-110) Carbon Dioxide 27 mEq/l mEq/l (22-31) Anion Gap 5 mEq/L L mEq/L (6-14) BUN 37 mg/dL H mg/dL (7-23) Creatinine 1.1 mg/dL H mg/dL (0.6-1.0) Estimated GFR 47 Glucose 94 mg/dL mg/dL (70-100) Calcium 9.4 mg/dL mg/dL (8.5-10.4) POC Troponin I 0.08 ng/mL ng/mL (0.00-0.08) Medications Given: Discontinued Medications Sodium Chloride (Ns) 1,000 mls @ 0 mls/hr IV EDNOW ONE; Wide Open PRN Reason: Protocol Stop: 01/19/19 17:17 Last Admin: 01/19/19 17:21 Dose: 1,000 mls Point of Care Test Results: Chemistry 01/19/19 18:26 POC Troponin I 0.08 ng/mL ng/mL (0.00-0.08) Departure - Departure Disposition: Home, Routine, Self-Care Clinical Impression: Dizziness, Mild dehydration Condition: Good Instructions: Dehydration (ED), Dizziness (ED) Additional Instructions: DISCHARGE INSTRUCTIONS FROM YOUR DOCTOR Thank you for visiting our emergency department today. You were treated by a physician fast food assistant restaurant manager today and your case was reviewed with our ED Attending physician. Please keep in mind that discharge from the emergency department does not mean that there is nothing wrong - it simply means that we have not identified an emergency condition that requires further evaluation or treatment in the hospital. You should always plan to follow up with primary care for re- evaluation of your condition in the next 2-3 days. If you have been referred to a specialist, please call as soon as possible (today or tomorrow) to schedule your follow up appointment at the appropriate time. DIAGNOSTIC WORKUP IN THE EMERGENCY DEPARTMENT INCLUDED EKG, CARDIAC ENZYMES, ELECTROLYTES AND CBC. CREATININE WAS SLIGHTLY ELEVATED AT 1.1 WITH BUN AT 37 SUGGESTING MILD DEHYDRATION. THE REMAINDER OF LAB WORK IS REASSURING. EKG DID HAVE SOME CHANGES COMPARED TO NOVEMBER WITH INVERTED T-WAVES V4 THROUGH V6 AND LEAD 2. TROPONIN WAS NEGATIVE. WE DO RECOMMEND FOLLOWING UP WITH DR. KHAN. PLEASE CALL ON MONDAY FOR AN APPOINTMENT. PLEASE FOLLOW UP WITH HER PRIMARY CARE ON MONDAY. STAY WELL-HYDRATED AT HOME. RETURN TO THE EMERGENCY DEPARTMENT FOR WORSENING OR PERSISTENT DIZZINESS, CHEST PAIN, SHORTNESS OF BREATH, VOMITING, SEVERE HEADACHE, OR ANY OTHER CONCERN. People present with illnesses and injuries in different ways, and it is always possible that we have missed something. You may always return for re-evaluation if symptoms worsen or if they are not improving or if you develop new/different symptoms. Again, thank you for choosing our emergency department. We hope that you feel better. Referrals: Brian Renee MD [Primary Care Provider] - 1-2 days without fail Isaias Khan MD [Medical Doctor] - 1-2 days without fail
[2019-01-19] MEDS ORDERED: NS 1,000 ML IV ONE (17:16)
--- NOTE | 2019-01-19 18:18 | CPEKG ---
Test Reason : OPEN Blood Pressure : / mmHG Vent. Rate : 067 BPM Atrial Rate : 067 BPM P-R Int : 216 ms QRS Dur : 083 ms QT Int : 404 ms P-R-T Axes : 062 -74 -80 degrees QTc Int : 427 ms Atrial-paced complexes Borderline prolonged IN interval Left anterior fascicular block Probable anterior infarct, age indeterminate ST elevation, consider inferior injury Lateral leads are also involved Confirmed by Michael Tejada ([id number] on 01/19/2019 6:18:00 PM Referred By: Michael Tejada Confirmed By:Michael Tejada
[2019-01-19 18:57] VITALS: BP 172/102
== END 2019-01-19 18:56 | disposition home or self-care (01) ==
DX: E86.0 Dehydration (principal); R42 Dizziness and giddiness; R53.83 Other fatigue
CPT/HCPCS: 84484-ER